=== PATIENT | female | born 1990 | race American Indian/Alaskan Native ===

== ENCOUNTER 2017-10-02 00:23 | Emergency (ER) | payer SELFPAY ==
[2017-10-02 00:31] VITALS: BP 186/126
== END 2017-10-02 01:15 | disposition left against medical advice (07) ==
LOC: ED 00:23
DX: J45.909 Unspecified asthma, uncomplicated (principal); Z53.21 Procedure and treatment not carried out due to patient leaving prior to being seen by health care provider